=== PATIENT | female | born 1950 | race Caucasian/White ===

== ENCOUNTER 2017-09-29 20:59 | Emergency (ER) | payer MEDICARE, OTHER ==
[~2017-09-29] VITALS: Ht 154.9 cm; Wt 54.5 kg
[2017-09-29] MEDS ORDERED: CALCIUM 600 MG-1 TAB PO (21:23)
[2017-09-29] MEDS ORDERED: ONE-A-DAY PRO200 MCG PO (21:24)
[2017-09-29 22:30] VITALS: BP 148/80
== END 2017-09-29 22:30 | disposition home or self-care (01) ==
LOC: ED 20:59
DX: S81.811A Laceration without foreign body, right lower leg, initial encounter (principal); S80.11XA Contusion of right lower leg, initial encounter; W18.39XA Other fall on same level, initial encounter; Y93.89 Activity, other specified; Y92.832 Beach as the place of occurrence of the external cause; Y99.8 Other external cause status
CPT/HCPCS: 90715